=== PATIENT | male | born 1975 | race Caucasian/White ===

== ENCOUNTER 2016-12-06 09:34 | Observation (INO) | payer BC ==
--- NOTE | 2016-12-06 09:48 | CPEKG ---
Heart Rate: 90 RR Interval: 667 P-R Interval: 144 QRSD Interval: 76 QT Interval: 344 QTC Interval: 421 P Caldwell: 45 QRS Caldwell: 34 T Wave Caldwell: -41 EKG Severity - ABNORMAL ECG - EKG Impression: SINUS RHYTHM EKG Impression: NONSPECIFIC T ABNORMALITIES, ANTERIOR LEADS Electronically Signed By: Phill Gilmore 06-Dec-2016 14:47:44
[2016-12-06 10:53] LABS: % IMMATURE GRANULYOCYTES 0.2 % (0.0-1.1); ABSOLUTE IMMATURE GRANULOCYTES 0.01 10^3/uL (0.00-0.10); ADD DIFF? NO; ADD MORPH? NO; ADD SCAN? NO; ATYPICAL LYMPHOCYTE FLAG 10 (0-99); FRAGMENT RBC FLAG 0 (0-99); HEMATOCRIT 47.4 % (40.0-51.0); HEMOGLOBIN 16.7 g/dL (13.7-17.5); LEFT SHIFT FLG 0 (0-99); LIPEMIA HEMOLYSIS FLAG 90 (0-99); MEAN CELL HEMOGLOBIN 31.5 pg (27.9-34.1); MEAN CELL HEMOGLOBIN CONCENTR. 35.2 g/dL (32.4-36.7); MEAN CELL VOLUME 89.3 fL (81.5-99.8); MEAN PLATELET VOLUME 10.5 fL (8.7-11.7); PLATELET CLUMPS FLAG 0 (0-99); PLATELET COUNT 256 10^3/uL (150-400); RED BLOOD CELL COUNT 5.31 10^6/uL (4.40-6.38); RED CELL DISTRIBUTION WIDTH 12.1 % (11.5-15.2)
--- NOTE | 2016-12-06 10:53 | EDPHY ---
H & P Stated Complaint: nausea/dizzy/ l chest pain all weekend Source: Patient Exam Limitations: No limitations - Personal History Current Tetanus/Diphtheria Vaccine: No - Medical/Surgical History Hx Asthma: No Hx Chronic Respiratory Disease: No Hx Diabetes: No Hx Cardiac Disease: No Hx Renal Disease: No Hx Cirrhosis: No Hx Alcoholism: No Hx HIV/AIDS: No Hx Splenectomy or Spleen Trauma: No Other PMH: indigestion/heartburn - Social History Smoking Status: Never smoked HPI/ROS: CHIEF COMPLAINT: Chest pain, nausea, dizziness HISTORY OF PRESENT ILLNESS: Patient complains of chest pain that started Monday evening. This is retrosternal and epigastric pain. Paroxysmal with long periods pain. Mild-to- moderate. Described as a GERD and reflux-type pain. Does not radiate. Associated with some nausea, lightheadedness and occasional sweating. No shortness of breath. No fever chills. No trauma or injury. No edema or edema of the lower extremities. No recent travel or surgery. Does have a history of palpitations and anxiety. He has been evaluated for palpitations in the past in [place] but no formal a stress test or angiography. No other associated complaints or modifying factors. REVIEW OF SYSTEMS: Ten systems reviewed and are negative unless otherwise noted in the HPI PAST MEDICAL HISTORY: Palpitations, anxiety PAST SURGICAL HISTORY: Tonsils SOCIAL HISTORY: Nonsmoker. Lives in [facility]. Works in [employer] FAMILY HISTORY: Noncontributory EXAMINATION General Appearance: Alert, no distress Head: normocephalic, atraumatic Eyes: Pupils equal and round, no conjunctival pallor or injection ENT, Mouth: Mucous membranes moist Neck: Normal inspection, supple, non-tender Respiratory: Lungs are clear to auscultation Cardiovascular: Regular rate and rhythm. No murmur. Pulses intact distally Gastrointestinal: Abdomen is soft and nontender Back: non-tender, no bony abnormalities Neurological: A&O, nonfocal, normal gait Skin: Warm and dry, no rash Extremities: Nontender, no pedal edema Psychiatric: Mood and affect normal DIFFERENTIAL DIAGNOSES: Including but not limited to ACS, PE, congestive heart failure, endocarditis, pericarditis, anxiety MDM: 10:50 a.m. Chest pain with dizziness and lightheadedness Monday night. He does have PVCs present during my examination but no ischemia on the monitor. Vital signs are within normal limits. He is awake and alert and mentating appropriately. Laboratory studies pending. 11:40 a.m. Troponin is negative. Laboratory studies are also within normal limits. Chest x-ray is unremarkable. EKG is abnormal with anterolateral changes. Will consult Cardiology and plan for admission. 12:00 p.m. I discussed the case with on-call merchant tailor Dr. Lopez. He will provide consultation. I have also discussed the case with the hospitalist Dr. Baca in the patient be admitted to PCU to Dr. Bowen. He is admitted in stable condition. 1:00 p.m. Patient has been admitted to the hospital and has been evaluated by Cardiology here in the emergency department. They planned obtain echocardiogram. Admitted in stable condition EKG interpretation: Dr. Gilmore Normal sinus rhythm with anterolateral ischemic changes. No previous EKG available for comparison (Shreyas Flores) Constitutional: Initial Vital Signs Temperature (C) 98.2 F 12/06/16 09:38 Heart Rate 90 12/06/16 09:38 Respiratory Rate 18 12/06/16 09:38 Blood Pressure 132/91 H 12/06/16 09:38 O2 Sat (%) 96 12/06/16 09:38 O2 Delivery Mode Room Air Allergies/Adverse Reactions: No Known Allergies Allergy (Unverified 12/06/16 09:38) Home Medications: Medication Instructions Recorded Aspirin EC [Aspirin EC 81 mg (*)] 81 mg PO DAILY 12/06/16 Cholecalciferol Vit D3 [Vitamin D3 1,000 units PO DAILY 12/06/16 (*)] Escitalopram Oxalate [Lexapro] 20 mg PO DAILY 12/06/16 Esomeprazole Magnesium [Nexium] 20 mg PO DAILY 12/06/16 Multivitamins [Multivitamin (*)] 1 tab PO DAILY 12/06/16 [place]-3 Fatty Acids [Fish Oil 1000 2,000 mg PO DAILY 12/06/16 mg (*)] Medical Decision Making - Diagnostics Imaging Results: Imaging Impressions Chest X-Ray 12/06/16 10:26 Impression: No acute pulmonary disease. ED Course/Re-evaluation: This patient has anterior lateral ischemia on his EKG. His exam findings are essentially unremarkable except for his history of present illness revealing chest pressure and chest pain. We will admit this patient after Cardiology consult. Dr. Levi Gottlieb was here in the emergency department consulting. I believe this patient may be having an acute coronary syndrome and there are no further EKGs available. (Phill Gilmore) - Data Points Laboratory Results: Laboratory Results 12/06/16 09:25 12/06/16 09:25 12/06/16 12/06/16 12/06/16 10:10 09:25 09:25 WBC RBC Hgb Hct MCV MCH MCHC RDW Plt Count MPV Neut % (Auto) Lymph % (Auto) Walsh % (Auto) Eos % (Auto) Baso % (Auto) Nucleat RBC Rel Count Absolute Neuts (auto) Absolute Lymphs (auto) Absolute Monos (auto) Absolute Eos (auto) Absolute Basos (auto) Absolute Nucleated RBC Immature Gran % Immature Gran # PT 12.1 SEC SEC (12.0-15.0) INR 0.91 (0.83-1.16) APTT 24.2 SEC SEC (23.0-38.0) D-Dimer Cancelled 0.29 ug/mLFEU ug/mLFEU (0.00-0.50) Sodium 142 mEq/L mEq/L (134-144) Potassium 4.0 mEq/L mEq/L (3.5-5.2) Chloride 106 mEq/L mEq/L (97-110) Carbon Dioxide 24 mEq/l mEq/l (22-31) Anion Gap 12 mEq/L mEq/L (8-16) BUN 19 mg/dL mg/dL (7-23) Creatinine 1.3 mg/dL mg/dL (0.7-1.3) Estimated GFR > 60 Glucose 97 mg/dL mg/dL (70-100) Calcium 9.9 mg/dL mg/dL (8.5-10.4) Total Bilirubin 0.7 mg/dL mg/dL (0.1-1.4) Conjugated Bilirubin 0.4 mg/dL mg/dL (0.0-0.5) Unconjugated Bilirubin 0.3 mg/dL mg/dL (0.0-1.1) AST 25 IU/L IU/L (17-59) ALT 38 IU/L IU/L (21-72) Alkaline Phosphatase 48 IU/L IU/L (38-126) Troponin I < 0.012 ng/mL ng/mL (0.000-0.034) NT-Pro-B Natriuret Pep 38 pg/mL pg/mL (0-125) Total Protein 7.5 g/dL g/dL (6.3-8.2) Albumin 4.5 g/dL g/dL (3.5-5.0) Lipase 184 IU/L IU/L (23-300) 12/06/16 09:25 WBC 6.16 10^3/uL 10^3/uL (3.80-9.50) RBC 5.31 10^6/uL 10^6/uL (4.40-6.38) Hgb 16.7 g/dL g/dL (13.7-17.5) Hct 47.4 % % (40.0-51.0) MCV 89.3 fL fL (81.5-99.8) MCH 31.5 pg pg (27.9-34.1) MCHC 35.2 g/dL g/dL (32.4-36.7) RDW 12.1 % % (11.5-15.2) Plt Count 256 10^3/uL 10^3/uL (150-400) MPV 10.5 fL fL (8.7-11.7) Neut % (Auto) 49.4 % % (39.3-74.2) Lymph % (Auto) 39.4 % % (15.0-45.0) Walsh % (Auto) 5.8 % % (4.5-13.0) Eos % (Auto) 4.7 % % (0.6-7.6) Baso % (Auto) 0.5 % % (0.3-1.7) Nucleat RBC Rel Count 0.0 % % (0.0-0.2) Absolute Neuts (auto) 3.04 10^3/uL 10^3/uL (1.70-6.50) Absolute Lymphs (auto) 2.43 10^3/uL 10^3/uL (1.00-3.00) Absolute Monos (auto) 0.36 10^3/uL 10^3/uL (0.30-0.80) Absolute Eos (auto) 0.29 10^3/uL 10^3/uL (0.03-0.40) Absolute Basos (auto) 0.03 10^3/uL 10^3/uL (0.02-0.10) Absolute Nucleated RBC 0.00 10^3/uL 10^3/uL (0-0.01) Immature Gran % 0.2 % % (0.0-1.1) Immature Gran # 0.01 10^3/uL 10^3/uL (0.00-0.10) PT INR APTT D-Dimer Sodium Potassium Chloride Carbon Dioxide Anion Gap BUN Creatinine Estimated GFR Glucose Calcium Total Bilirubin Conjugated Bilirubin Unconjugated Bilirubin AST ALT Alkaline Phosphatase Troponin I NT-Pro-B Natriuret Pep Total Protein Albumin Lipase Medications Given: Discontinued Medications Metoprolol Tartrate (Lopressor) 50 mg PO ONCE ONE Stop: 12/06/16 13:03 Last Admin: 12/06/16 14:30 Dose: 50 mg Departure - Departure Disposition: [facility] Inpatient Acute Clinical Impression: Abnormal EKG Chest pain Qualifiers: Chest pain type: unspecified Qualified Code(s): R07.9 - Chest pain, unspecified Condition: Good
[2016-12-06 11:02] LABS: ALANINE AMINOTRANSFERASE 38 IU/L (21-72); ALBUMIN 4.5 g/dL (3.5-5.0); ALKALINE PHOSPHATASE 48 IU/L (38-126); ANION GAP 12 mEq/L (8-16); ASPARTATE AMINOTRANSFERASE 25 IU/L (17-59); BILIRUBIN,TOTAL 0.7 mg/dL (0.1-1.4); BILIRUBIN-CONJUGATED 0.4 mg/dL (0.0-0.5); BILIRUBIN-UNCONJUGATED 0.3 mg/dL (0.0-1.1); CALCIUM 9.9 mg/dL (8.5-10.4); CARBON DIOXIDE 24 mEq/l (22-31); CHLORIDE 106 mEq/L (97-110); CREATININE 1.3 mg/dL (0.7-1.3); GLOMERULAR FILTRATION RATE > 60; GLUCOSE 97 mg/dL (70-100); SODIUM 142 mEq/L (134-144); TOTAL PROTEIN 7.5 g/dL (6.3-8.2)
[2016-12-06 11:04] LABS: INR 0.91 (0.83-1.16); PROTIME(PATIENT) 12.1 SEC (12.0-15.0)
[2016-12-06 11:05] LABS: APTT 24.2 SEC (23.0-38.0)
[2016-12-06 11:14] LABS: TROPONIN I < 0.012 ng/mL (0.000-0.034)
[2016-12-06] MEDS ORDERED: ZOLPIDEM TARTRATE 5 MG TAB PO PRN (12:18)
[2016-12-06] MEDS ORDERED: LORazepam 0.5 MG TAB PO PRN (12:18)
[2016-12-06] MEDS ORDERED: LORazepam 2 MG/ML INJ IVP PRN (12:18)
[2016-12-06] MEDS ORDERED: HYDROCODONE/APAP 5/325 TAB PO PRN (12:18)
[2016-12-06] MEDS ORDERED: ONDANSETRON DISINTEGRATING 4 MG TAB PO PRN (12:18)
[2016-12-06] MEDS ORDERED: ONDANSETRON 4 MG/2 ML VIAL IVP PRN (12:18)
[2016-12-06] MEDS ORDERED: ACETAMINOPHEN 325 MG TAB PO PRN (12:18)
[2016-12-06] MEDS ORDERED: NS 1,000 ML IV SCH (12:30)
--- NOTE | 2016-12-06 12:54 | PDCARCONS ---
Cardiology Consult Reason for Consult: Chest pain Chief Complaint: Chest pain abnormal EKG Requesting Physician: Jessi History of Present Illness: 41-year-old male no prior cardiovascular history, no history of tobacco abuse, diabetes, hypertension, hyperlipidemia. Father had a myocardial infarction and bypass surgery at age 60. He presents with of 4 day history of dizziness associated with some nausea. He has pinprick type chest pain in multiple sites over the left lateral chest wall. It is described as sharp. Does not radiate to the arm or jaw. It is not associated with shortness of breath nausea or vomiting. Patient has been concerned about his heart for some time. He had extensive cardiac workup 4 years ago for skipped beats. Patient denies PND orthopnea. He has had no syncope. Patient suffers from significant depression. He is on Lexapro. He had been off for several weeks but started back 4 weeks ago but has been consistent. He has been taking Nexium which he stopped. He is under considerable stress related to his brother who committed suicide in April. He is alone here in [place]. Patient has no exertional symptoms. History Information - Allergies/Home Medication List Allergies/Adverse Reactions: No Known Allergies Allergy (Unverified 12/06/16 09:38) Home Medications: Lexapro 12/06/16 [Last Taken Unknown] I have personally reviewed and updated: family history, medical history, social history, surgical history - Surgical History Reports: appendectomy - Family History Negative for: father with history of CAD younger than 55 - Social History Smoking Status: Never smoked Alcohol Use: Occasionally Drug Use: Marijuana Cardiac History - Cardiac History Timing/Duration: Days Severity: mild Severity Scale: 5 Location: other (lat chest) Activities at Onset: rest Associated Symptoms: malaise, weakness, other (dizzy) STEPAN Risk Evaluation age greater or equal to 65: no greater or equal to 3 CAD risk factors: no known CAD(stenosis greater or eqaul to 50%): no ASA use in past 7 days: yes severe angina(greater or equal to 2 episodes in 24hrs): no EKG ST changes greater or equal to 0.5mm: no positive cardiac marker: no Total Score: 1 STEPAN Score: 4.7% risk Physical Exam Temp Pulse Resp BP Pulse Ox 36.9 C 66 18 132/74 H 95 12/06/16 12:19 12/06/16 12:19 12/06/16 12:19 12/06/16 12:19 12/06/16 12:19 Constitutional: uncomfortable, other Eyes: PERRL, anicteric sclera, EOMI, No icteric sclera Ears, Nose, Mouth, Throat: moist mucous membranes, no oral mucosal ulcers Cardiovascular: regular rate and rhythym, no murmur, rub, or gallop, No systolic murmur, No JVD, No edema Peripheral Pulses: 2+: carotid (R), carotid (L), femoral (R), femoral (L), dorsalis-pedis (R), dorsalis-pedis (L) Respiratory: no respiratory distress, no rales or rhonchi, clear to auscultation Gastrointestinal: normoactive bowel sounds, soft, non-tender abdomen, no palpable masses, No hepatosplenomegally Genitourinary: no bladder fullness Skin: normal color, No rash Musculoskeletal: full muscle strength, no muscle tenderness Neurologic: AAOx3, sensation intact bilaterally, CN II-XII Intact, No weakness, No numbness, No facial droop Psychiatric: anxious, depressed Lymph, Heme, Immunologic: no cervical LAD, no supraclavicular LAD Lab and Imaging 12/06/16 09:25 12/06/16 09:25 WBC 6.16 10^3/uL (3.80-9.50) 12/06/16 09:25 RBC 5.31 10^6/uL (4.40-6.38) 12/06/16 09:25 Hgb 16.7 g/dL (13.7-17.5) 12/06/16 09:25 Hct 47.4 % (40.0-51.0) 12/06/16 09:25 MCV 89.3 fL (81.5-99.8) 12/06/16 09:25 MCH 31.5 pg (27.9-34.1) 12/06/16 09:25 MCHC 35.2 g/dL (32.4-36.7) 12/06/16 09:25 RDW 12.1 % (11.5-15.2) 12/06/16 09:25 Plt Count 256 10^3/uL (150-400) 12/06/16 09:25 MPV 10.5 fL (8.7-11.7) 12/06/16 09:25 Neut % (Auto) 49.4 % (39.3-74.2) 12/06/16 09:25 Lymph % (Auto) 39.4 % (15.0-45.0) 12/06/16 09:25 [place] % (Auto) 5.8 % (4.5-13.0) 12/06/16 09:25 Eos % (Auto) 4.7 % (0.6-7.6) 12/06/16 09:25 Baso % (Auto) 0.5 % (0.3-1.7) 12/06/16 09:25 Nucleat RBC Rel Count 0.0 % (0.0-0.2) 12/06/16 09:25 Absolute Neuts (auto) 3.04 10^3/uL (1.70-6.50) 12/06/16 09:25 Absolute Lymphs (auto) 2.43 10^3/uL (1.00-3.00) 12/06/16 09:25 Absolute Monos (auto) 0.36 10^3/uL (0.30-0.80) 12/06/16 09:25 Absolute Eos (auto) 0.29 10^3/uL (0.03-0.40) 12/06/16 09:25 Absolute Basos (auto) 0.03 10^3/uL (0.02-0.10) 12/06/16 09:25 Absolute Nucleated RBC 0.00 10^3/uL (0-0.01) 12/06/16 09:25 Immature Gran % 0.2 % (0.0-1.1) 12/06/16 09:25 Immature Gran # 0.01 10^3/uL (0.00-0.10) 12/06/16 09:25 PT 12.1 SEC (12.0-15.0) 12/06/16 09:25 INR 0.91 (0.83-1.16) 12/06/16 09:25 APTT 24.2 SEC (23.0-38.0) 12/06/16 09:25 D-Dimer Cancelled 12/06/16 10:10 Sodium 142 mEq/L (134-144) 12/06/16 09:25 Potassium 4.0 mEq/L (3.5-5.2) 12/06/16 09:25 Chloride 106 mEq/L (97-110) 12/06/16 09:25 Carbon Dioxide 24 mEq/l (22-31) 12/06/16 09:25 Anion Gap 12 mEq/L (8-16) 12/06/16 09:25 BUN 19 mg/dL (7-23) 12/06/16 09:25 Creatinine 1.3 mg/dL (0.7-1.3) 12/06/16 09:25 Estimated GFR > 60 12/06/16 09:25 Glucose 97 mg/dL (70-100) 12/06/16 09:25 Calcium 9.9 mg/dL (8.5-10.4) 12/06/16 09:25 Total Bilirubin 0.7 mg/dL (0.1-1.4) 12/06/16 09:25 Conjugated Bilirubin 0.4 mg/dL (0.0-0.5) 12/06/16 09:25 Unconjugated Bilirubin 0.3 mg/dL (0.0-1.1) 12/06/16 09:25 AST 25 IU/L (17-59) 12/06/16 09:25 ALT 38 IU/L (21-72) 12/06/16 09:25 Alkaline Phosphatase 48 IU/L (38-126) 12/06/16 09:25 Troponin I < 0.012 ng/mL (0.000-0.034) 12/06/16 09:25 NT-Pro-B Natriuret Pep 38 pg/mL (0-125) 12/06/16 09:25 Total Protein 7.5 g/dL (6.3-8.2) 12/06/16 09:25 Albumin 4.5 g/dL (3.5-5.0) 12/06/16 09:25 Lipase 184 IU/L (23-300) 12/06/16 09:25 EKG Interpretation: Positive for: other (EKG shows sinus rhythm with subtle T- wave changes in V1 through V3.) Echocardiogram: Normal left ventricular function without pericardial effusion. No regional wall motion abnormalities. A/P Assessment: Impression: 41-year-old male with atypical symptoms over 4 days with atypical chest pain described as sharp pain in multiple sites on the lateral left chest. Troponin is negative despite 4 days of symptoms. EKG is nonspecific with subtle T-wave inversions in V1 through V3. These may represent his Lexapro. His echocardiogram shows no regional wall motion abnormalities and no evidence of structural heart disease his exam is normal. Plan: With overall low risk of cardiac disease stress testing would be contraindicated. Positive test likely false positive in this situation. After 2nd negative troponin would recommend CT based coronary angiogram with assessment of LV function, evaluation for pulmonary embolic disease, other chest pathology. No indication for more aggressive medical therapy or cardiac catheterization at this point. Review of Systems - Review of Systems Constitutional: malaise, weakness. denies: chills, fever EENTM: no symptoms reported Respiratory: no symptoms reported Cardiac: no symptoms reported Gastrointestinal/Abdominal: nausea. denies: no symptoms reported, abdominal pain, constipation, diarrhea, vomiting Genitourinary: no symptoms Musculoskelatal: no symptoms Skin: no symptoms Neurological: no symptoms, anxiety, depressed Hematologic/Lymphatic: no symptoms reported
[2016-12-06] MEDS ORDERED: METOPROLOL TARTRATE 50 MG TAB PO ONE (13:02)
--- NOTE | 2016-12-06 13:06 | GHP ---
[f rep st] HISTORY AND PHYSICAL DATE OF ADMISSION: 12/06/2016 CHIEF COMPLAINT: Chest pain. HISTORY OF PRESENT ILLNESS: A 41-year-old male complaining of 4-days of chest pain accompanied by rosana velazquez. He has a long history over the past several years of having intermittent left-sided chest pa in which, he has felt has been GERD symptoms, which he has treated with OTC PPI medications and Tums . This pain will come on intermittently without particular exacerbations and generally resolves wit h antacids or PPI medication. In the last 4-days, he has had a feeling of nausea accompanied by rosalio st pain. It is rated 2 to 4/10 with a kind of ache, burning and pain in his anterior chest not asso ciated with diaphoresis, but is associated with a feeling of nausea without vomiting. He has felt w eak and tired, but has not experienced orthopnea or PND. The pain does not get worse with exercise and in fact, it may actually have improved. It also improves if he stands up and it gets worse when he lies down. There is no history of a recent sore throat, fever, cough, chest trauma, experience of shortness of breath, wheezing, increased abdominal pain, or diarrhea. He has no history of joint disorder, no recent swelling or pain in any of his joints and no recent rash or insect bite. The gentleman's brother with whom he was close killed himself in April of this year. The patient and the brother had lived together in [place] and then the patient moved approximately 1-year ago fo r a job here in [place]. The brother then lost his job, could not find another job in [place] and t he patient reports that he became depressed and then killed himself. I do not know the mechanism. Since that , he has felt tired, admits that he has secluded himself and reports that he goes to work, comes home, either watches television, plays video games, and/or will then just go to sleep. He also admits that once a week, generally on Monday night, he will drink approximately 8 to 10 oun shay of vodka. He does not experience withdrawal symptoms. He has never blacked out and he has neve r had prior difficulties with the use of alcohol. He does not use other illicit drugs. PAST MEDICAL HISTORY: Denies asthma, allergies, diabetes or renal problems. He has been taking his own blood pressure and admits that at times, is higher than he would expect. The readings he has r eceived are approximately 130/90. He does not make an association between these readings and his cu rrent chest pain. PAST SURGICAL HISTORY: An appendectomy done 10-years ago after the appendix ruptured. He has recov ered well without bowel difficulties. ALLERGIES: None. REVIEW OF SYSTEMS: A 10-point Review of Systems is negative. As noted above, it is positive for mike troncoso fact that he reports taking Lexapro all of his life, since his teenage years, in particular, for p roblems of anxiety and depression. He says he has never been hospitalized for depression and says chris troncoso has never thought of hurting himself in any way. He reports that if he does not take the Lexapro he begins to feel more anxious. He describes himself as a loner. He is single and lives by himself . 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 Tobacco: None. Drugs: None. Alcohol: Most recently an abuse in the last six months with binge drinking on Monday night as noted in the HPI. He has never used IV drugs. FAMILY HISTORY: Positive for early coronary artery disease in his father and paternal grandfather. CURRENT MEDICATIONS: Noted in the EMR and will be reconciled when they are available. PHYSICAL EXAM: GENERAL: This is a pleasant, quiet gentleman who appears in no distress. I am seei ng him in the emergency department. VITAL SIGNS: His initial vital signs show some hypertension wi th a blood pressure 150/102, pulse rate regular in sinus rhythm on the monitor at 87, respirations n ormal, oxygenation on room air and he is afebrile. HEENT: Shows no signs of trauma. Tongue and bu ccal mucosa are normal. NECK: Supple without meningismus. Thyroid is not enlarged. There is no a denopathy in the cervical regions. CHEST WALL: Shows some tenderness along the costosternal juncti ons without erythema or warmth. He has no inspiratory splinting. LUNGS: Clear to P and A without wheezing or rales. HEART: Singular S1 and physiologically split S2. No murmur or gallop is noted. ABDOMEN: Normoactive bowel sounds, no masses, tenderness or organomegaly. EXTREMITIES: No edema , cyanosis or clubbing. NEUROLOGIC: Oriented x3. Gentleman with a rather flat affect. Cranial ne rves 2 through 12 intact to specific testing. Motor and sensory function intact. LABORATORY: CBC is normal as is the INR and D-dimer. His chemistry panel is normal with a normal t roponin, lipase and BNP. ECG shows sinus rhythm at 90. He has a normal CT and QRS interval, but there was T-wave flattening and minor degrees of depression in V4, 5 and 6 and slight downward sloping in 3 and AVF suggestive o f possibly subendocardial ischemia. There are no clear ischemic changes. He has T-wave inversions also in V1 through V3. An echocardiogram reviewed by myself and with Dr. Gottlieb is normal showing normal wall motion func tion. ASSESSMENT: 1. Acute chest pain of uncertain etiology. The gentleman has had chest pain the last 4-days and ye t today has a normal troponin with an abnormal ECG. The ECG could be electrolyte disorder or relate d to drugs. Given that he has had 4-days of pain with a negative troponin and without clear ischemi c changes on his ECGs, this is probably a low probability of coronary ischemia. After discussion wi Dr. Gottlieb, it was decided to do CT coronary angiogram as it is unlikely that there will be in intervention. 2. Acute depression. He is suffering from an acute depression related to the suicide of his brothe r, though he is taking Lexapro, he had admits that he is only going to work and then coming home and describes himself as a bit of a hermit. social services specialist should become involved and will arrange r outpatient mental health care. His Lexapro will be continued. 3. History of gastroesophageal reflux disease treated with PPI medication and Tums. This could be a component of the gentleman's current chest pain, but given the nature of it, we are going to rule out cardiac disease and then continue to treat what is probably a gastroesophageal problem concurren t with his complaint of chest pain. 4. DVT prophylaxis will be with early ambulation. Lovenox will not be used. 5. Code status is full code. He does not have a POA. 6. Will be admitted on observation. His CT coronary angiography will be reviewed today. Arrangeme nts with case management regarding his mental health care will also be made. TIME: This admission required greater than 55 minutes. /[id number]/[id number]
[2016-12-06] MEDS ORDERED: IOPAMIDOL (ISOVUE 370) 100 ML BTL IV ONE (14:56)
--- NOTE | 2016-12-06 15:14 | ECHO ---
[id number] + + [address] : : [place] [address] : : [phone] + + Adult Echocardiographic Report + --------+ :Name: ALONSO ADORNO BStudy Date: 12/06/2016 11:58 AM : : Hospital Admission Number: [id number] Loca tion: ER: :: 1975 Gender: Male Height: 66 i n : :Age: 41 yrs Race: WH Weight: 160 lb : :Reason For Study: Eval LV Fx : : BSA: 1.8 met ers2 : :History: Chest Pain, Abnormal EKG : + --------+ MMode/2D Measurements \T\ Calculations IVSd: 0.65 cm LVIDd: 4.3 cm FS: 35.8 % Ao root diam: 2.8 cm LVPWd: 0.77 cm LVIDs: 2.7 cm EDV(Teich): 80.8 ml ACS: 1.8 cm ESV(Teich): 27.8 ml EF(Teich): 65.6 % Normal Measurement Values: + + :LVIDd (3.5-5.7cm) IVSd (0.6-1.1cm) LVPWd (0.6-1.1cm) Aortic Root (2.0-3.7cm)Left Atrium (1.5-4.0cm): :LV Vol(d) (76-115ml) LV Vol(s) (29-48ml) Ejec Fraction (50-65%)PV Balwinder (0.6- 1.2m/s) TV Balwinder (0.4-1.0m/s) : :MV E Balwinder (0.8-1.0m/s)MV A Balwinder (0.3-1.0m/s)LVOT Balwinder (0.7-1.2m/s) Asc Ao Balwinder ( 0.9-1.8m/s) : + + Doppler Measurements \T\ Calculations MV E max balwinder: Ao V2 max: LV V1 max: PA V2 max: 63.7 cm/sec 106.0 cm/sec 78.5 cm/sec 81.4 cm/sec MV A max balwinder: Ao max P.5 mmHg LV V1 max PG: PA max P.0 cm/sec 2.5 mmHg 2.7 mmHg MV E/A: 1.5 Left Ventricle The left ventricle is normal in size and function. There is normal left ventricular wall thickness. The left ventricular ejection fraction is normal. Ejection Fraction = 66%. The left ventricular wall motion is normal. Right Ventricle The right ventricle is normal in size and function. Atria The left atrial size is normal. Right atrial size is normal. Mitral Valve The mitral valve is normal in structure and function. There is no mitral valve stenosis. There is no mitral regurgitation noted. Tricuspid Valve The tricuspid valve is normal in structure and function. No tricuspid regurgitation. Aortic Valve The aortic valve is normal in structure and function. The aortic valve is trileaflet. There is no aortic stenosis. There is no aortic insufficiency. Pulmonic Valve The pulmonic valve is normal in structure and function. There is no pulmonic valvular regurgitation. Great Vessels The aortic root is normal size. Pericardium/Pleural There is no pericardial effusion. Conclusion A complete two-dimensional transthoracic echocardiogram was performed (2D, M-mode, Doppler and color flow Doppler). The left ventricle is normal in size and function. The left ventricular ejection fraction is normal. Ejection Fraction = 66%. The left ventricular wall motion is normal. The right ventricle is normal in size and function. The left atrial size is normal. There is no mitral regurgitation noted. The tricuspid valve is normal in structure and function. No tricuspid regurgitation. The aortic valve is normal in structure and function. The aortic valve is trileaflet. The aortic root is normal size. There is no pericardial effusion. Final Reading Physician: Es Ruvalcaba signed on 12/06/2016 03:12 PM Ordering Physician: Shanta Perez Performed By: Sincere Ku, BLAIRCS
[2016-12-06] MEDS ORDERED: METOPROLOL TARTRATE 5 MG/5 ML INJ ONE (15:31)
[2016-12-06] MEDS: ESCITALOPRAM OXALATE 10 MG TAB PO SCH ×2 (17:30→17:43)
[2016-12-06 20:06] VITALS: RESP 16
[2016-12-07 05:45] VITALS: O2SAT 95
[2016-12-07 07:14] VITALS: BP 114/81; PULSE 64; TEMP 98.2
[2016-12-07] MEDS: ESCITALOPRAM OXALATE 10 MG TAB PO SCH (08:12)
[2016-12-07] MEDS ORDERED: PANTOPRAZOLE SODIUM 40 MG TAB PO SCH (09:00)
[2016-12-07] MEDS ORDERED: CHOLECALCIFEROL VIT D3 1,000 UNITS TAB PO SCH (09:00)
[2016-12-07] MEDS ORDERED: MULTIVITAMINS 1 EACH TAB PO SCH ×2 (09:00)
[2016-12-07] MEDS ORDERED: ASPIRIN EC 81 MG TAB PO SCH (09:00)
[2016-12-07] MEDS ORDERED: OMEGA-3 FATTY ACIDS 1,000 MG CAP PO SCH (09:00)
--- NOTE | 2016-12-07 09:07 | CPEKG ---
Heart Rate: 66 RR Interval: 909 P-R Interval: 156 QRSD Interval: 82 QT Interval: 376 QTC Interval: 394 P [place]: 57 QRS [place]: 56 T Wave [place]: 3 EKG Severity - BORDERLINE ECG - EKG Impression: SINUS RHYTHM EKG Impression: BORDERLINE T ABNORMALITIES, DIFFUSE LEADS EKG Impression: COMPARED WITH 06 DEC 2016, T ABNL SLIGHTLY IMPROVED Electronically Signed By: Staci Saavedra 07-Dec-2016 19:33:10
--- NOTE | 2016-12-07 22:22 | GDS ---
[f rep st] DISCHARGE SUMMARY KNOWN ACUTE DIAGNOSES: 1. Chest pain, noncardiac in origin. 2. Acute depression. 3. Gastroesophageal reflux disease, under treatment with Tums and proton pump inhibitor medication. CHRONIC DIAGNOSIS: Depression. CONSULTATION: Cardiology. PROCEDURES: CT coronary angiogram showing a less than 40% lesion in the LAD near the origin of the 1st diagonal branch. Here, there was a 40% stenosis without flow limitation. The remaining diagonal branches were normal. He has a right dominant system. Echocardiogram, another procedure which was normal, showing no wall motion abnormality. HOSPITAL COURSE: This is a 41-year-old male, presented with a complaint of chest pain. He admitted that he had been depressed for the last 6 months due to the suicide of his brother. He was admitted for evaluation of his chest pain. An echocardiogram showed no wall motion abnormality. The troponin series was entirely normal. A CT coronary angiogram performed showing a 40% narrowing in the LAD near the origin of the 1st diagonal branch. There was no flow limitation. The findings were explained to the patient. It is unclear if he should be treated with a statin and aspirin as he has no symptomatology and no flow limitation, and he has an isolated lesion. He has significant depression. I have suggested an outpatient followup with Psychiatry or Psychology. He had complete resolution of his chest pain. DISCHARGE MEDICATIONS: These will be his usual medications without change or additions or subtractions as follows; Lexapro 20 mg daily, omega-3 fatty acids 2000 mg daily, multivitamin daily, vitamin D3 1000 international units daily, aspirin 81 mg daily, Nexium 20 mg daily, lipitor 10mg qhs PLAN: Lloyd will follow up with his primary care physician. He could not remember the name but he knew the place and agreed that he would follow up with them. He will follow up within the next 1-2 weeks for review of his cardiac findings. He will also obtain a referral for his mental health management of depression. I have suggested active exercise, a low fat cardiac diet. MATTERS TO BE ADDRESSED AT THE FIRST FOLLOWUP: Review the gentleman's blood pressure, cardiac findings and decide if he needs to be placed on a statin and aspirin at this point. Most importantly, he needs a referral to psychiatry or psychologist for management of his depression. /[id number]/MODL MTDD
== END 2016-12-07 09:46 | disposition home or self-care (01) ==
LOC: F2W 12:16
PROVIDERS: ADMIT Internal Medicine Pulmonary Disease; ATTEND Internal Medicine Pulmonary Disease
DX: R07.9 Chest pain, unspecified (principal); F32.9 Major depressive disorder, single episode, unspecified; K21.9 Gastro-esophageal reflux disease without esophagitis; R42 Dizziness and giddiness; I49.1 Atrial premature depolarization; F41.9 Anxiety disorder, unspecified; Z82.49 Family history of ischemic heart disease and other diseases of the circulatory system; Z79.82 Long term (current) use of aspirin
CPT/HCPCS: 71020; 75574; 93005; 93306; 99285; G0378; Q9967

== ENCOUNTER 2017-11-01 10:47 | Observation (INO) | payer BC, OTHER ==
--- NOTE | 2017-11-01 11:21 | EDPHY ---
H & P Stated Complaint: R leg redness Time Seen by Provider: 11/01/17 11:04 HPI/ROS: CHIEF COMPLAINT: "I think my leg is infected" HISTORY OF PRESENT ILLNESS: 42-year-old immunocompetent male describes that 2 weeks ago he developed some pruritic lesions on his legs which she excoriated and developed a super infection at which point he was seen at an urgent care 7 days ago prescribed Bactrim. He notes that the erythema continues, has noticed proximal migration of his erythema. No fever or chills. No nausea or vomiting. No inguinal pain. No scrotal or genitalia involvement. No myalgias. No history of recurrent skin infections or known cutaneous MRSA history. REVIEW OF SYSTEMS: A ten point review of systems was performed and is negative with the exception of the items mentioned in the HPI PAST MEDICAL & SURGICAL HISTORY: no history of recurrent skin infection SOCIAL HISTORY:Nonsmoker PHYSICAL EXAM (Prior to examination, patient consented to physical exam, hands were washed and my usual and customary physical exam procedures followed) 1) GENERAL: Well-developed, well-nourished, alert and oriented. Appears to be in no acute distress. 2) HEAD: Normocephalic, atraumatic 3) HEENT: Pupils equal, round, reactive to light bilaterally. Sclera anicteric. Nasopharynx, oropharynx, clear, no lesions. 4) NECK: Full range of motion, no meningeal signs. 5) LUNGS: Clear auscultation bilaterally, no wheezes, no rhonchi, no retractions. 6) HEART: Regular rate and rhythm, no murmur, no heave, no gallop. 7) ABDOMEN: No guarding, no rebound, no focal tenderness, negative McBurney's, negative Sanders's, negative Rovsing's, negative peritoneal sign, 8) MUSCULOSKELETAL: Right lower extremity: Erythema extending the distally to the proximal mid thigh with multiple areas of excoriation evidence of super infection. Soft compartments bilaterally. Brisk pulses bilaterally. DP PT pulses present and brisk. Brisk capillary refill. Moving all extremities, no focal areas of tenderness, no obvious trauma. No peripheral edema or discoloration. 9) BACK: No CVA tenderness, no midline vertebral tenderness, no fluctuance, no step-off, no obvious trauma, no visual or palpable abnormality. 10) SKIN: No rash, no petechiae. 11) Psychiatric: Patient is oriented X 3, there is no agitation. DIFFERENTIAL DIAGNOSIS: In no particular order including but not limited to cellulitis, dermatitis, DVT, necrotizing fasciitis - Personal History Current Tetanus/Diphtheria Vaccine: No Current Tetanus Diphtheria and Acellular Pertussis (TDAP): No - Medical/Surgical History Hx Asthma: No Hx Chronic Respiratory Disease: No Hx Diabetes: No Hx Cardiac Disease: No Hx Renal Disease: No Hx Cirrhosis: No Hx Alcoholism: No Hx HIV/AIDS: No Hx Splenectomy or Spleen Trauma: No Other PMH: indigestion/heartburn, back pain - Social History Smoking Status: Never smoked Constitutional: Initial Vital Signs Temperature (C) 36.6 C 11/01/17 10:53 Heart Rate 86 11/01/17 10:53 Respiratory Rate 16 11/01/17 10:53 Blood Pressure 166/102 H 11/01/17 10:53 O2 Sat (%) 96 11/01/17 10:53 O2 Delivery Mode Room Air Allergies/Adverse Reactions: cyclobenzaprine [From Flexeril] Allergy (Verified 11/01/17 14:40) Home Medications: Medication Instructions Recorded Cholecalciferol Vit D3 [Vitamin D3 1,000 units PO DAILY 12/06/16 (*)] Escitalopram Oxalate [Lexapro] 20 mg PO DAILY 12/06/16 Multivitamins [Multivitamin (*)] 1 tab PO DAILY 12/06/16 [place]-3 Fatty Acids [Fish Oil 1000 2,000 mg PO DAILY 12/06/16 mg (*)] Ibuprofen [Motrin (*)] 400 mg PO DAILY PRN 11/01/17 Sulfamethox/Tmp 800/160 mg 1 tab PO BID 11/01/17 [Bactrim Ds] Medical Decision Making - Diagnostics Imaging Results: Imaging Impressions Extremity Venous Study 11/01/17 11:25 Impression: No evidence of deep vein thrombosis in the bilateral lower extremities. These findings were discussed with Dr. Hernandez by telephone at 12:55 PM on 2017 ED Course/Re-evaluation: 11:50 a.m.: Patient also seen and examined by Dr. Isaiah Jacques. Plan will be admission for right lower extremity cellulitis, failed outpatient antibiotics. 12:04 p.m. consultation with hospitalist Lesa who is agreed to admit patient Dr. Segovia - Data Points Laboratory Results: Laboratory Results 11/01/17 11:41 11/01/17 11:41 11/01/17 11/01/17 11:41 11:41 WBC 7.92 10^3/uL 10^3/uL (3.80-9.50) RBC 5.18 10^6/uL 10^6/uL (4.40-6.38) Hgb 15.6 g/dL g/dL (13.7-17.5) Hct 45.0 % % (40.0-51.0) MCV 86.9 fL fL (81.5-99.8) MCH 30.1 pg pg (27.9-34.1) MCHC 34.7 g/dL g/dL (32.4-36.7) RDW 13.0 % % (11.5-15.2) Plt Count 259 10^3/uL 10^3/uL (150-400) MPV 9.6 fL fL (8.7-11.7) Neut % (Auto) 42.0 % % (39.3-74.2) Lymph % (Auto) 37.9 % % (15.0-45.0) [place] % (Auto) 6.4 % % (4.5-13.0) Eos % (Auto) 12.5 % H % (0.6-7.6) Baso % (Auto) 0.8 % % (0.3-1.7) Nucleat RBC Rel Count 0.0 % % (0.0-0.2) Absolute Neuts (auto) 3.33 10^3/uL 10^3/uL (1.70-6.50) Absolute Lymphs (auto) 3.00 10^3/uL 10^3/uL (1.00-3.00) Absolute Monos (auto) 0.51 10^3/uL 10^3/uL (0.30-0.80) Absolute Eos (auto) 0.99 10^3/uL H 10^3/uL (0.03-0.40) Absolute Basos (auto) 0.06 10^3/uL 10^3/uL (0.02-0.10) Absolute Nucleated RBC 0.00 10^3/uL 10^3/uL (0-0.01) Immature Gran % 0.4 % % (0.0-1.1) Immature Gran # 0.03 10^3/uL 10^3/uL (0.00-0.10) Sodium 142 mEq/L mEq/L (135-145) Potassium 4.3 mEq/L mEq/L (3.3-5.0) Chloride 104 mEq/L mEq/L (97-110) Carbon Dioxide 26 mEq/l mEq/l (22-31) Anion Gap 12 mEq/L mEq/L (8-16) BUN 16 mg/dL mg/dL (7-23) Creatinine 1.5 mg/dL H mg/dL (0.7-1.3) Estimated GFR 52 Glucose 87 mg/dL mg/dL (70-100) Calcium 9.5 mg/dL mg/dL (8.5-10.4) Medications Given: Discontinued Medications Cefazolin Sodium/Dextrose (Ancef 2 Gm) 100 mls @ 200 mls/hr IV EDNOW ONE PRN Reason: Protocol Stop: 11/01/17 11:54 Last Admin: 11/01/17 12:21 Dose: 100 mls Departure - Departure Disposition: [facility] Inpatient Acute Clinical Impression: Cellulitis of right lower extremity Condition: Fair
[2017-11-01] MEDS ORDERED: ceFAZolin 2 GM/DEXTROSE 100 ML IV ONE (11:25)
[2017-11-01 11:53] LABS: PLATELET COUNT 259 10^3/uL (150-400)
[2017-11-01] MEDS ORDERED: ONDANSETRON DISINTEGRATING 4 MG TAB PO PRN (15:03)
[2017-11-01] MEDS ORDERED: ONDANSETRON 4 MG/2 ML VIAL IVP PRN (15:03)
[2017-11-01] MEDS ORDERED: HYDROCODONE/APAP 5/325 TAB PO PRN (15:03)
[2017-11-01] MEDS ORDERED: ACETAMINOPHEN 325 MG TAB PO PRN (15:03)
--- NOTE | 2017-11-01 15:14 | PDGENHP ---
History and Physical - Chief Complaint leg redness and itchyness - History of Present Illness 42-year-old immunocompetent non IV drug user male describes that 2 weeks ago he developed some pruritic lesions on his legs after being prescribed Flexeril. He excoriated them and developed a possible leg infection and possible impetigo for which he was seen at an urgent care 7 days ago prescribed Bactrim and a steroid taper. He has completed his steroid taper. He remains on the Bactrim. Over the past few days he has noted that the erythema of the legs has expanded and there is now involvement of his arms. He also c/o of pruritic rash No fever or chills. No nausea or vomiting. No inguinal pain. No scrotal or genitalia involvement. No myalgias. No history of recurrent skin infections or known cutaneous MRSA history. He was started on Cefazolin in the ER and says he feels better and that the leg erythema has improved somewhat already. He has not had a fever. There is no leukocytosis on labs. Cr is elevated from baseline. PAST MEDICAL & SURGICAL HISTORY: no history of recurrent skin infection, depression, indigestion/heartburn, back pain SOCIAL HISTORY:Nonsmoker, previous ETOH, no IV drug use FmHx: non contributory History Information - Allergies/Home Medication List Allergies/Adverse Reactions: cyclobenzaprine [From Flexeril] Allergy (Verified 11/01/17 14:40) Home Medications: Cholecalciferol Vit D3 [Vitamin D3 (*)] 1,000 units PO DAILY 12/06/16 [Last Taken 12/06/16 08:00] Escitalopram Oxalate [Lexapro] 20 mg PO DAILY 12/06/16 [Last Taken 10/31/17] Multivitamins [Multivitamin (*)] 1 tab PO DAILY 12/06/16 [Last Taken 12/06/16 08 :00] [place]-3 Fatty Acids [Fish Oil 1000 mg (*)] 2,000 mg PO DAILY 12/06/16 [Last Taken 12/06/16 08:00] Ibuprofen [Motrin (*)] 400 mg PO DAILY PRN 11/01/17 [Last Taken 11/01/17] Sulfamethox/Tmp 800/160 mg [Bactrim Ds] 1 tab PO BID 11/01/17 [Last Taken ] I have personally reviewed and updated: medical history, social history - Surgical History Reports: appendectomy - Social History Smoking Status: Never smoked Review of Systems Review of Systems: ROS: 10pt was reviewed & negative except for what was stated in HPI & below Physical Exam Physical Exam: Temp Pulse Resp BP Pulse Ox 36.6 C 65 16 135/81 H 97 11/01/17 14:13 11/01/17 14:13 11/01/17 14:13 11/01/17 14:13 11/01/17 14:13 Constitutional: no apparent distress, not in pain Eyes: PERRL, EOMI Ears, Nose, Mouth, Throat: moist mucous membranes, hearing normal Cardiovascular: regular rate and rhythym, no murmur, rub, or gallop, No edema Respiratory: no respiratory distress, no rales or rhonchi, clear to auscultation Gastrointestinal: normoactive bowel sounds, soft, non-tender abdomen, no palpable masses Genitourinary: no bladder fullness Skin: warm, other (erythema involving primarily the right leg and thigh but also the left leg. Also patchy invovement of the arms. ) Musculoskeletal: full muscle strength Neurologic: AAOx3 Psychiatric: interacting appropriately, not anxious, not encephalopathic Lymph, Heme, Immunologic: no cervical LAD, No lymphadenopathy, No petechiae Lab Data & Imaging Review 11/01/17 11:41 11/01/17 11:41 WBC 7.92 10^3/uL (3.80-9.50) 11/01/17 11:41 RBC 5.18 10^6/uL (4.40-6.38) 11/01/17 11:41 Hgb 15.6 g/dL (13.7-17.5) 11/01/17 11:41 Hct 45.0 % (40.0-51.0) 11/01/17 11:41 MCV 86.9 fL (81.5-99.8) 11/01/17 11:41 MCH 30.1 pg (27.9-34.1) 11/01/17 11:41 MCHC 34.7 g/dL (32.4-36.7) 11/01/17 11:41 RDW 13.0 % (11.5-15.2) 11/01/17 11:41 Plt Count 259 10^3/uL (150-400) 11/01/17 11:41 MPV 9.6 fL (8.7-11.7) 11/01/17 11:41 Neut % (Auto) 42.0 % (39.3-74.2) 11/01/17 11:41 Lymph % (Auto) 37.9 % (15.0-45.0) 11/01/17 11:41 Sac % (Auto) 6.4 % (4.5-13.0) 11/01/17 11:41 Eos % (Auto) 12.5 % (0.6-7.6) H 11/01/17 11:41 Baso % (Auto) 0.8 % (0.3-1.7) 11/01/17 11:41 Nucleat RBC Rel Count 0.0 % (0.0-0.2) 11/01/17 11:41 Absolute Neuts (auto) 3.33 10^3/uL (1.70-6.50) 11/01/17 11:41 Absolute Lymphs (auto) 3.00 10^3/uL (1.00-3.00) 11/01/17 11:41 Absolute Monos (auto) 0.51 10^3/uL (0.30-0.80) 11/01/17 11:41 Absolute Eos (auto) 0.99 10^3/uL (0.03-0.40) H 11/01/17 11:41 Absolute Basos (auto) 0.06 10^3/uL (0.02-0.10) 11/01/17 11:41 Absolute Nucleated RBC 0.00 10^3/uL (0-0.01) 11/01/17 11:41 Immature Gran % 0.4 % (0.0-1.1) 11/01/17 11:41 Immature Gran # 0.03 10^3/uL (0.00-0.10) 11/01/17 11:41 Sodium 142 mEq/L (135-145) 11/01/17 11:41 Potassium 4.3 mEq/L (3.3-5.0) 11/01/17 11:41 Chloride 104 mEq/L (97-110) 11/01/17 11:41 Carbon Dioxide 26 mEq/l (22-31) 11/01/17 11:41 Anion Gap 12 mEq/L (8-16) 11/01/17 11:41 BUN 16 mg/dL (7-23) 11/01/17 11:41 Creatinine 1.5 mg/dL (0.7-1.3) H 11/01/17 11:41 Estimated GFR 52 11/01/17 11:41 Glucose 87 mg/dL (70-100) 11/01/17 11:41 Calcium 9.5 mg/dL (8.5-10.4) 11/01/17 11:41 Assessment & Plan Assessment: # Rash, likely cellulitis of RLE, LLE, and arms -Cont Cefazolin -IVF -check inflammatory markers -ID consult #Pruritis #acute Kidney Injury: -hold ibuprofen -IVF #Depression: restart home meds Plan: the etiology is possible infectious and the abx will be changed. Its surprising that he is reporting such vast improvement since starting the first dose of Ancef today. no Leukocytosis noted. Afebrile. Will check ESR, CRP, HIV. ID to see. schedule Benadryl Cr is elevated as well. He does not appear dry. Will provide IVF. Could be related to NSAID use Lovenox for DVT proph Full code
--- NOTE | 2017-11-01 15:57 | PDMN ---
Medical Necessity Medical necessity: MCG: M70 cellulitis, A-2 days, 42 y/o present w/ rash, likely cellulitis RLE, LLE and arms. failed outpatient antibx x1week, ID consult pending, started IV antibx, acute kidney injury noted, (Cr 1.5), IVF required, Anticipate>2MN for ongoing monitoring, diagnosis and treatment.
[2017-11-01] MEDS: ESCITALOPRAM OXALATE 10 MG TAB PO SCH (16:08)
[2017-11-01] MEDS: NS 1,000 ML IV SCH (16:11)
[2017-11-02] MEDS: NS 1,000 ML IV SCH ×2 (00:18→09:43)
[2017-11-02 05:42] LABS: PLATELET COUNT 230 10^3/uL (150-400)
[2017-11-02 08:08] LABS: HIV TYPE 1 AND 2 NEGATIVE (NEGATIVE)
[2017-11-02] MEDS ORDERED: CHOLECALCIFEROL VIT D3 1,000 UNITS TAB PO SCH (09:00)
[2017-11-02] MEDS ORDERED: OMEGA-3 FATTY ACIDS 1,000 MG CAP PO SCH (09:00)
[2017-11-02] MEDS ORDERED: ENOXAPARIN 40 MG/0.4 ML SYR SC SCH (09:00)
[2017-11-02] MEDS ORDERED: MULTIVITAMINS 1 EACH TAB PO SCH (09:00)
[2017-11-02] MEDS: ESCITALOPRAM OXALATE 10 MG TAB PO SCH (09:42)
--- NOTE | 2017-11-02 11:43 | HOSPPROG ---
Hospitalist Progress Note Assessment/Plan: # Rash, possibly cellulitis of RLE, LLE, and arms. Today, overall the rash looks improved. However there are portions of it that appear to have grown past the demarcation area yesterday. -Cont Cefazolin until seen by ID -IVF: will stop today -There is no Leukocytosis, elevated inflammatory markers, or procalcitonin #Pruritis -cont with scheduled Benadryl, appears to be improving #acute Kidney Injury: -hold ibuprofen -resolved with IVF #Depression: home meds Lovenox for DVT proph Full code Subjective: feels better, but rash appears to have worsened in certain areas but much improved in other parts. Pruritis is better. Objective: Vital Signs Temp Pulse Resp BP Pulse Ox 36.8 C 76 16 121/77 H 95 11/02/17 08:00 11/02/17 08:00 11/02/17 08:00 11/02/17 08:00 11/02/17 08:00 Laboratory Results 11/02/17 05:21 11/02/17 05:21 - Physical Exam Constitutional: no apparent distress Eyes: PERRL, EOMI Ears, Nose, Mouth, Throat: moist mucous membranes, hearing normal, ears appear normal Cardiovascular: regular rate and rhythym, No edema Respiratory: no respiratory distress, no rales or rhonchi, clear to auscultation Gastrointestinal: normoactive bowel sounds, soft, non-tender abdomen Skin: warm Musculoskeletal: No generalized weakness Neurologic: AAOx3 Psychiatric: interacting appropriately, not anxious, not encephalopathic Lymph, Heme, Immunologic: No petechiae ICD10 Worksheet Patient Problems: Problems Problem Status Onset Cellulitis of right lower extremity Acute Abnormal EKG Acute Chest pain Acute
--- NOTE | 2017-11-02 15:53 | ASMTCMCOM ---
CM Note CM Note Notes: Pt admitted to hospital for cellulitis on legs. Per ID, pt experiencing an allergic reaction, not cellulitis. Antibiotics to be discontinued. No needs identified, anticipate will dc home independent when medically stable. CM available for any changes. DC Plan: Independent Date Signed: 11/02/2017 03:53 PM Electronically Signed By:Deyanira Thacker RN
--- NOTE | 2017-11-02 15:55 | ASMTLACE ---
FARIDA Length of stay for Answers: 1 day current admission Acuity / Level of Answers: Yes Care: Did the patient have an inpatient admission? Comorbidities - select Answers: Opioid dependence all that apply / Chronic pain # of Emergency department Answers: 1-2 visits in the last 6 months Social determinants Answers: Mental health diagnosis (anxiety, depression, pers onality disorders, etc.) Score: 12 Date Signed: 11/02/2017 03:54 PM Electronically Signed By:Deyanira Thacker RN
--- NOTE | 2017-11-02 16:25 | GCON ---
[f rep st] CONSULTATION INFECTIOUS DISEASE CONSULTATION DATE OF CONSULTATION: 11/02/2017 REFERRING PHYSICIAN: William Segovia MD REASON FOR CONSULTATION: Bilateral lower extremity erythema with concern for possible cellulitis. HISTORY OF PRESENT ILLNESS: Patient is a 42-year-old male with a recent history of low back pain, fo r which he was started on Flexeril. After beginning Flexeril, he developed pruritic lesions over bot h lower extremities. He took the Flexeril in total for 3 days. He scratched these areas and subsequ ently developed worsening skin changes around the regions, which he describes as ultimately being sarah k purple in color. They subsequently crusted and had associated weeping. He was seen in urgent care and prescribed a Solu-Medrol taper, as well as Bactrim. The patient recently completed his steroid taper and was still on Bactrim. He notes that overall his symptoms had initially improved, but then he had developed worsening erythema of both lower extremities, primarily the right thigh, and also a patch of pruritic erythema over the right anterior arm. He did not have associated fever, chills, or night sweats. He does not feel sick. He does note persistent pruritus, which is relieved by use of antihistamines. He has not had any sores in his mouth, genital ulcerations, or eye pain/redness. G iven the progressive erythema, patient presented to the emergency department for further evaluation. Findings were felt to be compatible with cellulitis, and he was started on cefazolin. He also had a n ultrasound of both lower extremities performed, which showed no evidence of DVT. The patient feels like his erythema has receded since admission. Blood cultures were obtained at the time of presenta tion and have shown no growth. The patient also had CBCs performed on 2 separate occasions since adm ission, both of which show 12-13% eosinophil proportion with absolute eosinophil count around 1000. Patient also had mild renal insufficiency with a creatinine of 1.5. Given the above findings, I am n ow asked to assist in his ongoing management. PAST MEDICAL HISTORY: Gastroesophageal reflux, depression, back pain. PAST SURGICAL HISTORY: Appendectomy. CURRENT MEDICATIONS: Cefazolin 1 g IV q.8 hours, [place] as needed, Lovenox 40 mg subcu daily, Lexapro 20 mg p.o. daily, multivitamin p.o. daily, fish oil 2000 mg p.o. daily, Benadryl as needed, vitamin D 1000 units p.o. daily. ALLERGIES: Possibly to Flexeril. SOCIAL HISTORY: Patient does not smoke. He recently quit drinking. No drug use. 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 There are pet cats at home. FAMILY HISTORY: Mother with multiple sclerosis. REVIEW OF SYSTEMS: Outside that noted in HPI, remaining 10-system review is unremarkable. PHYSICAL EXAMINATION: VITAL SIGNS: Temperature 36.6, heart rate 88, respiratory rate 18, blood pres sure 132/82, oxygen saturation 97% on room air. GENERAL: Patient is well nourished, well developed, no acute distress. He appears nontoxic. HEENT: There is no scleral icterus, conjunctival injectio n, or conjunctival petechiae. The oropharynx shows moist mucous membranes. No ulcerations or erosio ns are noted intraorally or over the lips. No nasal discharge. NECK: Supple, without palpable lymp hadenopathy or thyromegaly. CHEST: Clear to auscultation bilaterally, without adventitious sounds. The respiratory effort is normal. CARDIOVASCULAR: Regular rate and rhythm, without murmurs, gallop s, or rubs. ABDOMEN: Soft, nontender, nondistended. There is no palpable organomegaly. Bowel soun ds are present. MUSCULOSKELETAL: There is no cyanosis, clubbing, or edema. SKIN: There is a faint , erythematous rash over the right anterior thigh and in a patchy distribution over the right lower a nd left lower leg; some of the margins are serpiginous in nature; there is a small erythematous patch over the right antecubital fossa. No active pustules present. The areas of erythema are mildly war m. They are nontender to palpation. There is no fluctuance or bulla. SKIN: See musculoskeletal; t here is a tattoo over the left upper extremity. No stigmata of endocarditis. SKIN: Warm and dry to touch. NEUROLOGIC: The patient is alert and interacts appropriately with examiner. Cranial nerves 2-12 are grossly intact. Sensation is grossly intact. Muscle tone and bulk are normal. LABORATORY DATA: White blood cell count 8.7, hematocrit 41.2, platelets 230, neutrophils 38%, lympho cytes 42%, eosinophils 13%, absolute eosinophil count 1160. Serum creatinine is 1.2, CRP less than 5 , procalcitonin 0.02. HIV antibody is negative. Blood cultures x2 sets pending. IMPRESSION: Bilateral lower extremity rash, as well as small patch of rash over right upper extremit y: This is in association with significant pruritus and eosinophilia. There are no concomitant cons titutional symptoms present. Clinical findings are most compatible with allergic reaction rather manav n cellulitis. Most likely, this would be related to the patient's recent sulfonamide use. No signs of enanthem present. RECOMMENDATIONS: 1. Discontinue cefazolin and observe off antibiotics. 2. Repeat treatment course with either prednisone or a Solu-Medrol taper. 3. Will add liver function tests to chemistry panel as Bactrim hypersensitivity can be associated wi th liver enzyme abnormalities. 4. Advised patient if he were to develop signs of enanthem or worsening rash, to notify my office. 5. I think patient can be discharged home with outpatient followup in our office next week. Case discussed with Dr. Segovia at time of consultation. Thank you for this consultation. We will see the patient in followup as an outpatient. /[id number]/MODL
[2017-11-02 16:41] VITALS: BP 131/90
[2017-11-02] MEDS ORDERED: predniSONE 20 MG TAB PO ONE (17:21)
--- NOTE | 2017-11-02 17:27 | PDDCSUM ---
Discharge Summary Discharge Summary: This is a 42 yo male who presented with recurrent leg and arm rash. The rash was previously treated as cellulitis and treated with Bactrim and a steroid taper. He had initial benefit from these but once the steroids was stopped he noted recurrence and worsening of the rash. He was admitted. He was started initially on IV Cefazolin. He he eosinophilia on 2 CBC's. He did not have leukocytosis, elevated inflammatory markers, elevated procalcitonin, or pain on palpation. He was afebrile. ID was consulted for opinion of infectious etiology vs other. Dr. Ashok Hooper consulted and the rash is felt to be allergic. Abx have been stopped and he has been restarted on a Medrol dose pack. He will f/u with Dr. Hooper's office in one week. He was also noted to have SHAJI on presentation and this resolved with IV fluids. The pt initially was admitted under inpatient status due to expected need of IV antibiotics. As he no longer needs abx, he no longer needs inpatient admission. Discharge diagnosis. # Rash, likely allergic in etiology #Pruritis= #acute Kidney Injury: -hold ibuprofen -resolved with IVF #Depression: home meds Exam: please see progress note from today Meds: see med rec total time spent on discharge including discussion and coordination of care is 40 minutes
== END 2017-11-02 18:39 | disposition home or self-care (01) ==
LOC: INTOOBSV 12:09 → OBSVTOIN 12:09 → F3E 14:09
PROVIDERS: ADMIT Family Medicine; ATTEND Family Medicine
DX: R21 Rash and other nonspecific skin eruption (principal); N17.9 Acute kidney failure, unspecified; F32.9 Major depressive disorder, single episode, unspecified
CPT/HCPCS: 93971; 99285; G0378; J0690; J1200; J1650; J7512